=== PATIENT | female | born 1965 | race Caucasian/White ===

== ENCOUNTER 2017-08-24 15:22 | Emergency (ER) | payer OTHER ==
[~2017-08-24] VITALS: Ht 160 cm; Wt 108.9 kg
--- NOTE | ~2017-08-24 | EKG ---
[address] [place] [address] ELECTROCARDIOGRAM REPORT Name: BRENDAN DODGE Room #: DEP Eyal#: [id number] Admission: 08/24/17 Attend Phys: Discharge: 08/24/17 Date of : 63 Report #: [id number] THIS REPORT FOR: //name// [facility] ED Test Date: 2017-08-24 Test Time: 15:23:26 Pat Name: BRENDAN DODGE Department: Room: Gender: F Design Supervisor: 99 : 1965 Requested By: Aguilar Wolfe Order Number: [id number] MD: Norman Wiggins Measurements Intervals [place] Rate: 87 P: 38 GA: 146 QRS: -5 QRSD: 89 T: 9 QT: 375 QTc: 451 Interpretive Statements Sinus rhythm Inferior infarct, old Compared to ECG 02/04/2016 12:24:04 Myocardial infarct finding now present Electronically Signed On 08-24-2017 20:30:08 CDT by Norman Wiggins [email or web address] <ELECTRONICALLY SIGNED> By: Norman Wiggins MD 08/24/17 2030 1523 1523 Norman Wiggins MD /PAWEL
[~2017-08-24 15:22] MED LIST: ACETAMINOPHEN325 M1 PO; ACTEMRA162 MG/0.9; ACTEMRA162 MG/0.9 SQ; ADULT LOW DOSE81 MG PO; ALDACTONE100 MG PO; AMBIEN 5 MG TABL5 MG PO; ANUCORT-HC25 MG RECTAL; ASPIRIN EC81 M1 PO; CALCITRIOL0.25 MCG PO; CARISOPRODOL 3350 MG PO; CIPROFLOXACIN500 M1 PO; COLACE100 MG PO; CRESTOR20 MG PO; DIFLUCAN150 MG PO; DILAUDID 2 MG TA2 MG PO; DILAUDID 4 MG TA4 M1 PO; FOLIC ACID1 MG PO; FUROSEMIDE 20 M20 M1 PO; GLYCOLAX POWDER17 G1 PO; HUMIRA40 MG/0.8 SUBQ; HYOSCYAMINE0.125 M2 SUBLING; KLOR-CON 1010 MEQ PO; LASIX 40 MG TAB40 M1 PO; LEVEMIR SQ; LEVOTHYROXIN0.125 M1 PO; METHOTREXATE 22.5 M1 PO; MIRALAX17 GM PO; MOM PO; PHENERGAN 25 MG25 M1 PO; POTASSIUM CHLOR8 MEQ PO; POTASSIUM CHLORIDE PO; PREDNISONE 2.52.5 M1 PO; PROTONIX40 M2 PO; TREXALL10 MG PO; TUMS PO; ULTRAM 50MG TAB50 MG PO; VITAMIN D 5050000 I1 PO; VITAMINC500 PO; XANAX 0.5 MG0.5 M1 PO; ZETIA10 MG PO; ZOFRAN 4 MG ORAL4 M1 DIS; ZOFRAN 4 MG ORAL4 MG DISSOLVE; ZOLPIDEM TART12.5 M1 PO; [UNRECOGNIZED DRUG - OTHER]
[2017-08-24 15:47] LABS: ABSOLUTE NEUTROPHILS 5.7 thou/uL (1.4-8.2); BASOPHILS 0.5 % (0.0-2.0); EOSINOPHILS 0.3 % (0.0-3.0); HEMATOCRIT 43.6 % (37.0-47.0); HEMOGLOBIN 14.9 gm/dL (12.0-15.0); MCH 30.6 pg (26.0-34.0); MCHC 34.1 g/dL (28.0-37.0); MCV 89.8 fL (80.0-100.0); MONOCYTES 4.1 % (1.0-8.0); PLATELET COUNT 204 thou/uL (150-400); POLYS 80.1 % (36.0-66.0); RBC 4.86 mil/uL (4.20-5.00); RDW 13.3 % (10.5-14.5); WBC 7.1 thou/uL (4.0-11.0)
[2017-08-24 15:48] LABS: MANUAL DIFF NO
[2017-08-24 15:57] LABS: ANION GAP 8 mmol/L (7-16); BUN 14 mg/dL (7-18); CALCIUM 8.8 mg/dL (8.5-10.1); CHLORIDE 102 mmol/L (98-107); CO2 24 mmol/L (21-32); GLUCOSE 294 mg/dL (74-106); POTASSIUM 4.2 mmol/L (3.5-5.1); SODIUM 134 mmol/L (136-145)
[2017-08-24 16:06] LABS: TROPONIN-I < 0.04 ng/mL (<0.04-0.07)
[2017-08-24 16:36] LABS: ALBUMIN 3.7 g/dL (3.4-5.0); ALKALINE PHOSPHATASE 78 U/L (46-116); DIRECT BILIRUBIN < 0.1 mg/dL (<0.1-0.3); SGOT 22 U/L (15-37); SGPT 39 U/L (30-65); TOTAL BILIRUBIN 0.4 mg/dL (<0.1-1.0)
[2017-08-24] MEDS ORDERED: NOVOLOG100 UNIT/1 SUBQ (17:28)
[2017-08-24] MEDS ORDERED: PREDNISONE 20 M20 MG PO ×2 (17:29→17:40)
[2017-08-24 17:55] VITALS: BP 141/63
== END 2017-08-24 17:57 | disposition home or self-care (01) ==
LOC: ER 15:22
PROVIDERS: Nurse Practitioner
DX: M94.0 Chondrocostal junction syndrome [Tietze] (principal); R07.89 Other chest pain; E11.9 Type 2 diabetes mellitus without complications; M85.80 Other specified disorders of bone density and structure, unspecified site; M06.9 Rheumatoid arthritis, unspecified; K21.9 Gastro-esophageal reflux disease without esophagitis; J45.909 Unspecified asthma, uncomplicated; Z90.49 Acquired absence of other specified parts of digestive tract; Z90.710 Acquired absence of both cervix and uterus; Z86.73 Personal history of transient ischemic attack (TIA), and cerebral infarction without residual deficits; Z79.4 Long term (current) use of insulin; Z88.5 Allergy status to narcotic agent; Z88.4 Allergy status to anesthetic agent; Z88.8 Allergy status to other drugs, medicaments and biological substances; Z91.030 Bee allergy status

== ENCOUNTER → 2017-12-30 | Outpatient (CLI) | payer OTHER ==
[~2017-12-30] MED LIST changes: +ANTIVERT25 MG PO; +NOVOLOG100 UNIT/1 SUBQ; +PREDNISONE 20 M20 MG PO
== END ==
LOC: CAT 13:01
DX: I25.10 Atherosclerotic heart disease of native coronary artery without angina pectoris (principal); R04.2 Hemoptysis; I70.0 Atherosclerosis of aorta; K76.0 Fatty (change of) liver, not elsewhere classified; K44.9 Diaphragmatic hernia without obstruction or gangrene; M47.894 Other spondylosis, thoracic region; Z90.49 Acquired absence of other specified parts of digestive tract

== ENCOUNTER → 2018-01-04 | Outpatient (CLI) | payer OTHER | LOC: CAT 12:31 | DX: Z13.6 Encounter for screening for cardiovascular disorders (principal) ==

== ENCOUNTER → 2018-01-12 | Outpatient (CLI) | payer OTHER ==
--- NOTE | ~2018-01-12 | 2DMMODE ---
[facility] [address] [place] [address] 2 D/M-MODE ECHOCARDIOGRAM Name: BRENDAN DODGE Room #: REG [facility] [id number] Admission: 01/12/18 Attend Phys: Grayson Lopez Discharge: Date of : 63 Date of Service: 01/12/18 1525 Report #: [id number] THIS REPORT FOR: //name// APPROVED REPORT Study performed: 01/12/2018 14:28:29 EXAM: Comprehensive 2D, Doppler, and color-flow Echocardiogram Patient Location: Out-Patient BSA: 2.17 HR: 76 bpm BP: 140/88 mmHg Rhythm: NSR Other Information Study Quality: Adequate Indications Dyspnea on exertion. Hx: Heart block, DM, obesity, HLP. 2D Dimensions RVDd: 36.51 mm LVEF(%): 66.64 (>50%) IVSd: 11.82 (7-11mm) LVOT Diam: 22.53 (18-24mm) LVDd: 46.59 mm PWd: 11.93 (7-11mm) Ascending Ao: 34.26 (22-36mm) LVDs: 29.45 (25-40mm) Aortic Root: 34.80 mm Scott's LVEF: 66.64 % Volumes Left Atrial Volume (Systole) Single Plane 4CH: 54.63 mL Single Plane 2CH: 57.83 mL LA ESV Index: 28.00 mL/m2 Aortic Valve AoV Peak Sherman.: 1.81 m/s AO Peak Gr.: 13.05 mmHg LVOT Max P.49 mmHg LVOT Max V: 1.17 m/s MANUEL Vmax: 2.58 cm2 Mitral Valve E/A Ratio: 1.4 MV Decel. Time: 222.92 ms MV E Max Sherman.: 1.04 m/s [facility] [address] [place] [address] 2 D/M-MODE ECHOCARDIOGRAM Name: BRENDAN DODGE Room #: REG Eyal#: [id number] Admission: 01/12/18 Attend Phys: Grayson Lopez Discharge: Date of : 63 Date of Service: 01/12/18 1525 Report #: [id number] MV A Sherman.: 0.76 m/s MV PHT: 64.65 ms IVRT: 78.43 ms Pulmonary Valve PV Peak Sherman.: 0.93 m/s PV Peak Gr.: 3.45 mmHg Pulmonary Vein P Vein S: 0.56 m/s P Vein A: 0.25 m/s P Vein D: 0.42 m/s P Vein A Dur.: 124.6 msec P Vein S/D Ratio: 1.33 Left Ventricle The left ventricle is normal size. There is normal LV segmental wall motion. Mild concentric left ventricular hypertrophy. Left ventricular systolic function is normal. LVEF is 60-65%. The left ventricular diastolic function is normal. Right Ventricle The right ventricle is normal size. The right ventricular systolic function is normal. Atria The left atrium size is normal. The right atrium size is normal. Aortic Valve Aortic valve leaflets are mildly thickened and calcified. Trace aortic regurgitation. There is no aortic valvular stenosis. Mitral Valve The mitral valve is normal in structure. Trace mitral regurgitation. No evidence of mitral valve stenosis. Tricuspid Valve The tricuspid valve is normal in structure. There is no tricuspid valve regurgitation noted. Unable to assess PA pressure. Pulmonic Valve The pulmonary valve is normal in structure. Trace pulmonic regurgitation. Great Vessels The aortic root is normal in size. The ascending aorta is normal in size. IVC is not well visualized. [address] [address] 2 D/M-MODE ECHOCARDIOGRAM Name: BRENDAN DODGE Room #: REG CL Eyal#: [id number] Admission: 01/12/18 Attend Phys: Grayson Lopez Discharge: Date of : 63 Date of Service: 01/12/18 1525 Report #: [id number] Pericardium There is no pericardial effusion. <Conclusion> The left ventricle is normal size. Mild concentric left ventricular hypertrophy. LVEF is 60-65%. The left ventricular diastolic function is normal. The right ventricle is normal size. The left atrium size is normal. Aortic valve leaflets are mildly thickened and calcified. There is no aortic valvular stenosis. Trace mitral regurgitation. There is no tricuspid valve regurgitation noted. Unable to assess PA pressure. The aortic root is normal in size. There is no pericardial effusion. <ELECTRONICALLY SIGNED> By: Yoav Arora MD, FACC 01/12/18 1525 1525 1525 Yoav Arora MD, FACC /INF
== END ==
LOC: CV 13:41
DX: R06.00 Dyspnea, unspecified (principal); E11.9 Type 2 diabetes mellitus without complications; E66.9 Obesity, unspecified; E78.5 Hyperlipidemia, unspecified

== ENCOUNTER → 2018-01-12 | Outpatient (CLI) | payer OTHER | LOC: RAD 15:05 | DX: Z12.31 Encounter for screening mammogram for malignant neoplasm of breast (principal) ==

== ENCOUNTER 2018-01-15 01:41 | Emergency (ER) | payer OTHER ==
[~2018-01-15] VITALS: Ht 160 cm; Wt 118.8 kg
--- NOTE | ~2018-01-15 | EKG ---
[place] [address] [facility] [facility] [place] [address] ELECTROCARDIOGRAM REPORT Name: JAIR DODGEBERLY BARRETO Room #: DEP [facility]OK[facility] [id number] Admission: 01/15/18 Attend Phys: Discharge: 01/15/18 Date of : 63 Report #: [id number] THIS REPORT FOR: //name// [facility] ED Test Date: 2018-01-15 Test Time: 01:44:38 Pat Name: BRENDNA DODGE Department: Room: Gender: F Fire Hose Curer: [facility] : 1965 Requested By: Violeta Padilla Order Number: [id number] MD: Norman Wiggins Measurements Intervals [place] Rate: 75 P: 16 RI: 153 QRS: -11 QRSD: 99 T: 6 QT: 404 QTc: 452 Interpretive Statements Sinus rhythm Left ventricular hypertrophy Inferior infarct, old Compared to ECG 08/24/2017 15:23:26 Left ventricular hypertrophy now present Myocardial infarct finding still present Electronically Signed On 01-15-2018 10:25:08 OIL WELL DRILLER by Norman Wiggins [email or web address] <ELECTRONICALLY SIGNED> By: Norman Wiggins MD 01/15/18 1025 0144 0144 Norman Wiggins MD /PAWEL
[~2018-01-15 01:41] MED LIST changes: -ANTIVERT25 MG PO
[2018-01-15 02:10] LABS: ABSOLUTE NEUTROPHILS 3.5 thou/uL (1.4-8.2); BASOPHILS 0.8 % (0.0-2.0); EOSINOPHILS 4.4 % (0.0-3.0); HEMATOCRIT 43.2 % (37.0-47.0); HEMOGLOBIN 14.8 gm/dL (12.0-15.0); LYMPHOCYTES 37.2 % (24.0-44.0); MCHC 34.2 g/dL (28.0-37.0); MCV 90.8 fL (80.0-100.0); MONOCYTES 11.1 % (1.0-8.0); PLATELET COUNT 169 thou/uL (150-400); POLYS 46.5 % (36.0-66.0); RBC 4.76 mil/uL (4.20-5.00); RDW 12.9 % (10.5-14.5); WBC 7.5 thou/uL (4.0-11.0)
[2018-01-15 02:15] LABS: ANION GAP 10 mmol/L (7-16); BUN 21 mg/dL (7-18); CALCIUM 8.7 mg/dL (8.5-10.1); CHLORIDE 102 mmol/L (98-107); CO2 25 mmol/L (21-32); CREATININE 0.9 mg/dL (0.6-1.0); GLUCOSE 200 mg/dL (74-106); POTASSIUM 3.1 mmol/L (3.5-5.1); SODIUM 137 mmol/L (136-145)
[2018-01-15 02:24] LABS: TROPONIN-I < 0.04 ng/mL (<0.06)
[2018-01-15 04:45] VITALS: BP 128/72
[2018-01-15] MEDS ORDERED: ANTIVERT25 MG PO (05:08)
== END 2018-01-15 05:18 | disposition home or self-care (01) ==
LOC: ER 01:41
PROVIDERS: Emergency Medicine
DX: R07.9 Chest pain, unspecified (principal); E87.6 Hypokalemia; K21.9 Gastro-esophageal reflux disease without esophagitis; J45.909 Unspecified asthma, uncomplicated; E11.9 Type 2 diabetes mellitus without complications; M19.90 Unspecified osteoarthritis, unspecified site; Z90.49 Acquired absence of other specified parts of digestive tract; Z88.5 Allergy status to narcotic agent; Z88.6 Allergy status to analgesic agent

== ENCOUNTER → 2019-03-13 | Outpatient (CLI) | payer OTHER ==
[~2019-03-13] MED LIST changes: +ANTIVERT25 MG PO
== END ==
LOC: RAD 13:00
DX: M19.011 Primary osteoarthritis, right shoulder (principal); M17.12 Unilateral primary osteoarthritis, left knee; M67.823 Other specified disorders of tendon, right elbow

== ENCOUNTER → 2020-04-21 | Outpatient (CLI) | payer OTHER | LOC: SJCVCIMAG 09:11 | PROVIDERS: ATTEND Internal Medicine | DX: I07.1 Rheumatic tricuspid insufficiency (principal); I11.0 Hypertensive heart disease with heart failure; I50.32 Chronic diastolic (congestive) heart failure; I50.33 Acute on chronic diastolic (congestive) heart failure ==

== ENCOUNTER → 2021-05-22 | Outpatient (CLI) | payer OTHER | LOC: MRI 10:27 | PROVIDERS: ATTEND Internal Medicine | DX: S83.242A Other tear of medial meniscus, current injury, left knee, initial encounter (principal); M25.462 Effusion, left knee; M17.12 Unilateral primary osteoarthritis, left knee; X58.XXXA Exposure to other specified factors, initial encounter; Y93.89 Activity, other specified; Y92.89 Other specified places as the place of occurrence of the external cause; Y99.8 Other external cause status ==

== ENCOUNTER → 2021-09-29 | Outpatient (CLI) | payer OTHER ==
[~2021-09-29] MED LIST changes: +CALCIUM500 MG PO; +IBUPROFEN 200200 M1 PO; +LEVOTHYROXINE125 MC1 PO; +MAGNESIUM500 MG PO; +PROAIR HFA8.5 GM INH; +QUETIAPINE FUMA25 MG PO; +VITAMIN D21250 MCG PO
[2021-09-29 11:27] LABS: HEMATOCRIT 40.4 % (37.0-47.0); HEMOGLOBIN 13.5 gm/dL (12.0-15.0); MCH 30.4 pg (26.0-34.0); MCHC 33.4 g/dL (28.0-37.0); MCV 90.9 fL (80.0-100.0); RBC 4.45 mil/uL (4.20-5.00); RDW 12.6 % (10.5-14.5)
[2021-09-29 11:34] LABS: URINE BILIRUBIN NEGATIVE (Negative); URINE BLOOD NEGATIVE (Negative); URINE CLARITY CLEAR; URINE COLOR YELLOW; URINE GLUCOSE-RANDOM* NEGATIVE (Negative); URINE KETONES NEGATIVE (Negative); URINE LEUKOCYTES-REFLEX NEGATIVE (Negative); URINE NITRITE-REFLEX NEGATIVE (Negative); URINE PROTEIN (DIPSTICK) NEGATIVE (Negative); URINE SPECIFIC GRAVITY >= 1.030 (1.005-1.035); URINE UROBILINOGEN 0.2 E.U./dl (0.2-1.0)
[2021-09-29 11:37] LABS: CALCIUM 8.4 mg/dL (8.5-10.1); CREATININE 0.8 mg/dL (0.6-1.0)
[2021-09-29 11:46] LABS: INR 1.03; PROTIME 11.2 Seconds (10.5-12.1)
--- NOTE | 2021-09-30 07:18 | EKG ---
[address] [address] ELECTROCARDIOGRAM REPORT Name: BRENDAN DODGE Room #: REG [facility] [id number] Admission: 09/29/21 Attend Phys: Andres Rudd MD Discharge: Date of : 63 Report #: [id number] [facility] Test Date: 2021-09-29 Test Time: 11:18:59 Pat Name: BRENDAN DODGE Department: Room: Gender: F Freight Solicitor: CB LUND : 1965 Requested By: Andres Rudd Order Number: [id number] : Grayson Blas Measurements Intervals [place] Rate: 68 P: 32 [place]: 159 QRS: -4 QRSD: 93 T: 16 QT: 434 QTc: 462 Interpretive Statements Sinus rhythm Compared to ECG 01/15/2018 01:44:38 Left ventricular hypertrophy no longer present Myocardial infarct finding no longer present Electronically Signed On 09-30-2021 7:18:05 DATA PROCESSING SUPERVISOR by Grayson Blas [email or web address] <ELECTRONICALLY SIGNED> By: Grayson Blas MD, [facility] 09/30/21 0718 17 17 Grayson Blas MD, FACC /EPI
== END ==
LOC: PAC 08:59
PROVIDERS: ATTEND Orthopaedic Surgery
DX: M17.11 Unilateral primary osteoarthritis, right knee (principal); E11.9 Type 2 diabetes mellitus without complications

== ENCOUNTER 2021-10-12 07:26 | Observation (INO) | payer OTHER ==
[~2021-10-12] VITALS: Ht 162.6 cm; Wt 99.3 kg
[2021-10-12 08:45] VITALS: BP 139/77
[2021-10-12 13:16] VITALS: BP 160/89
--- NOTE | 2021-10-12 14:12 | NUR ---
ASSUMED PT CARE AT 1315. PT IS ALERT & ORIENTED X4 AND ANXIOUS AT TIMES. PT HAS IV SITE ON LAC. PT HAS KINGA DRESSING, BILATERAL [facility] KNEE HIGH, [facility], SCD. PT STATED SHE HAS SLEEP APNEA AND DON'T USES CPAP CONSISTENTLY. PT IS ON 2L NC O2. FINISHED ADMISSION. PT AT THE BEDSIDE. CALLED CONSULT FOR MEDICAL MANAGEMENT PER DR GARCÍA. PT C/O OF NAUSEA AND GIVEN NAUSEA MEDICATION PER PT REQUEST. WILL CONTINUE TO MONITOR PT. FOLLOW POC.
[2021-10-12 19:51] VITALS: BP 152/90
[2021-10-12 20:30] VITALS: BP 152/90
[2021-10-13 00:32] VITALS: BP 133/66
--- NOTE | 2021-10-13 02:19 | NUR ---
PT IS SLOWLY PROGRESSING TOWARD GOAL OF DISCHARGE. SHE IS POST OP DAY 1 FROM LEFT TOTAL KNEE REPLACEMENT. PT IS A&OX4 WITH ANXIETY, IS ABLE TO COMMUNICATE WANTS AND NEEDS TO STAFF. LEFT KNEE WITH KINGA DRESSING INTACT AND FUNCTIONING APPROPRIATELY, WELL POLAR PACK. PT ON 2L/NC WITH O2 SATS >95%. AT HS, HER BLOOD SUGAR WAS 371; PT REQUESTED TO BE ABLE TO REPLACE HER OWN INSULIN PUMP, WHICH HAD BEEN HELD PRIOR TO SURGERY. CONTACTED MANAGER FACILITY LEGGER PRESS OPERATOR, RECEIVED NEW ORDERS TO ALLOW PT TO SELF-ADMINISTER HER OWN INSULIN VIA INSULIN PUMP. PT WITH SCOPOLOMINE PATCH IN PLACE FOR NAUSEA WITH GOOD EFFECT, PT DENIES NAUSEA AT THIS TIME. WILL CONTINUE TO OBSERVE FOR CHANGES
[2021-10-13 05:31] VITALS: BP 143/67
[2021-10-13 05:53] LABS: ABSOLUTE NEUTROPHILS 7.2 thou/uL (1.4-8.2); BASOPHILS 0.2 % (0.0-2.0); EOSINOPHILS 0.1 % (0.0-3.0); HEMATOCRIT 35.4 % (37.0-47.0); LYMPHOCYTES 12.4 % (24.0-44.0); MCH 30.8 pg (26.0-34.0); MCHC 33.9 g/dL (28.0-37.0); MCV 90.9 fL (80.0-100.0); MONOCYTES 8.4 % (1.0-8.0); PLATELET COUNT 191 thou/uL (150-400); POLYS 78.9 % (36.0-66.0); RDW 12.8 % (10.5-14.5); WBC 9.1 thou/uL (4.0-11.0)
[2021-10-13 06:11] LABS: CALCIUM 8.1 mg/dL (8.5-10.1); CREATININE 0.8 mg/dL (0.6-1.0); POTASSIUM 4.1 mmol/L (3.5-5.1)
[2021-10-13 08:10] VITALS: BP 114/60
--- NOTE | 2021-10-13 09:10 | NUR ---
55-year-old female with past medical history: diabetes, sleep apnea uses CPAP occasionally, hypertension, degenerative joint disease, osteopenia/osteoporosis, GERD, depression/anxiety, rheumatoid arthritis, of Gracia's esophagitis, and of asthma. DJD left knee. pain progressively more worse affecting her ADLs, quality of life. S/P day one. A & o x4, and able to make her needs known. Lives at home with her and her boys. Spouse works 2 jobs but can and help at home. 3 story home. 2 steps to enter and then 3 flights of stairs. Planning on staying in the living room for a while but still have steps up or down to the restrooms. There is bilat handrails. Will need Fww, provider plus will deliver today before going home. Outpt therapy set up for 10/14/21 at [facility] physical therapy in [place]. Will cont. following as needed for dc needs.
[2021-10-13 14:04] VITALS: BP 114/60
[2021-10-13 15:00] VITALS: BP 114/60
--- NOTE | 2021-10-14 12:34 | O ---
[facility] [place] [address] OPERATIVE REPORT Name: BRENDAN DODGE Room #: 444-P [facility] Kevin Birch#: [id number] Admission: 10/12/21 Attend Phys: Andres Rudd MD Discharge: 10/13/21 Date of : 63 Report #: [id number] THIS REPORT FOR: cc: Aren Saunders MD, Eric K. MD Abraham,Andres Emerson MD ~ DATE OF SERVICE: 10/12/2021 PREOPERATIVE DIAGNOSIS: Left knee osteoarthritis. POSTOPERATIVE DIAGNOSIS: Left knee osteoarthritis. PROCEDURE: Left total knee arthroplasty using Navio robotic assistance. SURGEON: Andres Rudd MD FIVE ROLL REFINER BATCH MIXER: Marsha Fernando PA-C. INDICATION FOR FIVE ROLL REFINER BATCH MIXER: Throughout the case, extensive retraction and manipulation of the knee was required. This was afforded to me by my enrichment assistant. ANESTHESIA: LMA with adductor canal block. IMPLANTS: A Little and Nephew size 5 Journey II BCS Oxinium femur, size 3 tibia, size 32 patella and a size 10 constrained polyethylene. TOURNIQUET TIME: 51 minutes. ESTIMATED BLOOD LOSS: 25 mL. COMPLICATIONS: None. SPECIMENS: None. CONDITION UPON LEAVING THE OR: Stable. INDICATIONS FOR PROCEDURE: The patient is a 55-year-old female with left knee osteoarthritis. She had failed conservative measures for this and after discussion with her, she elected for left total knee arthroplasty. DESCRIPTION OF PROCEDURE: Risks, benefits, alternatives, complications were discussed in detail with the patient including, but not limited to risk of anesthesia, risk of damage to nerves, arteries, blood vessels, risk for infection, bleeding, risk for continued knee pain, need for reoperation. Informed consent was obtained from the patient. Left knee was appropriately marked in the preoperative holding area. IV Ancef was given for preoperative [address] [address] OPERATIVE REPORT Name: BRENDAN DODGE BARRETO Room #: 444-P CT Birch#: [id number] Admission: 10/12/21 Attend Phys: Andres Rudd MD Discharge: 10/13/21 Date of : 63 Report #: [id number] antibiotics. Adductor canal block was placed by Anesthesia. She was brought to the operating room and placed in the supine position on the operating room table. LMA anesthesia was induced without complication. Tourniquet was placed on the left thigh. Left lower extremity was prepped and draped in normal sterile fashion. Timeout was performed, properly identifying the patient and procedure as well as the instrumentation and implants. All in the operating room were in agreement. Left lower extremity was exsanguinated, tourniquet was inflated. Tourniquet time was 51 minutes. Standard midline approach to the knee was made with 10 blade through the skin. Dissection was taken sharply to the fascia and deep flaps were developed medially and laterally. Fresh 10 blade was used to make a medial parapatellar arthrotomy and the knee was inspected. There was severe medial and patellofemoral compartment osteoarthritis. ACL and PCL were removed sharply. Reference pins were placed in the femur and the tibia. The knee was then digitally mapped using [employer] robotic system. Intraoperative plan was made. We sized the size 5 femur, the size 3 tibia and a 10 spacer. After acceptance of the intraoperative plan, the distal femoral cut was made with Navio bur. Distal femoral cutting block was pinned in place and chamfer cuts were made. Attention was turned to the tibia. Remainder of the menisci removed with Bovie cautery. Tibial resection guide was pinned in place using Navio for placement and tibial resection was made. Flexion and extension gaps were checked and found to have good balance in flexion and extension, both medially and laterally. Tibia was sized, found to be a size 3. Size 3 tibial trial was placed, pinned and punched. A size 5 femoral trial was placed, box cut was made. This was then trialed with a size 10 polyethylene, and size 10 polyethylene demonstrated 1-2 mm of laxity medially and laterally throughout range of motion of the knee. In deep flexion, there was up to 3 mm laterally. It was felt we could make up for this with a constrained implant. A 9 mm of bone was resected from the posterior surface of the patella and a size 32 patellar trial button was placed. Knee was taken through range of motion, found to be stable, found to have good patellar tracking. Trial components were removed. Bone ends were thoroughly irrigated with normal saline. A final size 3 tibia, size 5 Journey II BCS Oxinium femur and a size 32 patella were cemented into place using standard cementation techniques. While the cement cured, a periarticular injection consisting of morphine, ropivacaine, epinephrine, Toradol was placed around the knee joint capsule. After the cement cured, the tourniquet was deflated. Hemostasis was obtained with Bovie cautery. Final size 10 constrained polyethylene was placed. A gram of vancomycin was placed deep in the joint. Fascia was closed with 0 Vicryl. Skin was closed with 2-0 Vicryl, skin staple and a KINGA dressing was applied. The patient tolerated this [facility] [address] [place] [address] OPERATIVE REPORT Name: BRENDAN DODGE Room #: 444-P [facility] Kevin Birch#: [id number] Admission: 10/12/21 Attend Phys: Andres Rudd MD Discharge: 10/13/21 Date of : 63 Report #: [id number] procedure well and went to recovery room under care of Anesthesia postoperatively. <ELECTRONICALLY SIGNED> By: Andres Rudd MD 10/14/21 1234 1451 1631 Andres Rudd MD /nt
== END 2021-10-13 16:36 | disposition home or self-care (01) ==
LOC: OR → EDSTATUS 09:12 → ADMC 09:51 → OR 10:19 → 4S 12:47 → OR 12:48 → 4S 12:48
PROVIDERS: Nurse Practitioner; ADMIT Orthopaedic Surgery; ATTEND Orthopaedic Surgery
DX: M17.12 Unilateral primary osteoarthritis, left knee (principal); Z20.822 Contact with and (suspected) exposure to COVID-19; E11.9 Type 2 diabetes mellitus without complications; I10 Essential (primary) hypertension; G47.30 Sleep apnea, unspecified; J45.909 Unspecified asthma, uncomplicated; K21.9 Gastro-esophageal reflux disease without esophagitis; F41.9 Anxiety disorder, unspecified; F32.9 Major depressive disorder, single episode, unspecified; M06.9 Rheumatoid arthritis, unspecified; M81.0 Age-related osteoporosis without current pathological fracture; Z79.4 Long term (current) use of insulin; Z79.899 Other long term (current) drug therapy
CPT/HCPCS: 27447; S2900; 50010; 50101; 50415; 50954; 51130; 51225; 51412; 53000; 53078; 53365; 56527; 56528; 57095; 57103; 57110; 57127; 57180; 59024; 62110; 62900; 64041; 70005